=== PATIENT | male | born 1965 | race Caucasian/White ===

== ENCOUNTER 2018-01-01 16:36 | Emergency (ER) | payer OTHER ==
[~2018-01-01] VITALS: Ht 165.1 cm; Wt 56.7 kg
[~2018-01-01 16:36] MED LIST: ACETAMINOPHEN-1 EAC1 PO; IBUPROFEN 600600 M1 PO; NOHOMEMEDICATIONS; PAROEX473 ML MM; PENICILLIN VK250 MG PO; PENICILLIN VK500 MG PO; VICODIN 5-3001 EACH PO
[2018-01-01 18:43] VITALS: BP 139/83
== END 2018-01-01 18:45 | disposition home or self-care (01) ==
LOC: M.ERS 16:36
DX: S01.81XA Laceration without foreign body of other part of head, initial encounter (principal); S09.90XA Unspecified injury of head, initial encounter; F17.210 Nicotine dependence, cigarettes, uncomplicated; W22.01XA Walked into wall, initial encounter; Y93.89 Activity, other specified; Y92.89 Other specified places as the place of occurrence of the external cause; Y99.8 Other external cause status

== ENCOUNTER 2018-04-21 14:02 | Emergency (ER) | payer OTHER ==
[~2018-04-21] VITALS: Ht 162.6 cm; Wt 56.7 kg
[2018-04-21 15:09] LABS: ABSOLUTE BASOPHILS 0.1 thou/uL (0.0-0.2); ABSOLUTE EOSINOPHILS 0.1 thou/uL (0.0-0.7); ABSOLUTE LYMPHOCYTES 2.1 thou/uL (0.8-5.3); ABSOLUTE MONOCYTES 0.9 thou/uL (0.0-1.2); ABSOLUTE NEUTROPHILS 6.5 thou/uL (1.6-8.1); BASOPHILS 0.7 %; EOSINOPHILS 0.6 %; HEMATOCRIT 44.5 % (42.0-52.0); HEMOGLOBIN 15.5 gm/dL (14.0-18.0); LYMPHOCYTES 22.2 %; MCH 34.4 pg (26.0-34.0); MCHC 34.9 g/dL (28.0-37.0); MCV 98.5 fL (80.0-100.0); MONOCYTES 8.8 %; MPV 7.9 fl. (7.2-11.1); NUCLEATED RBCS 0 /100WBC; PLATELET COUNT* 227 thou/uL (150-400); POLYS 67.7 %; RBC 4.51 mil/uL (4.50-6.00); RDW-CV 12.6 % (10.5-14.5); WBC 9.6 thou/uL (4.0-11.0)
[2018-04-21 15:23] LABS: ANION GAP 11 mmol/L (7-16); BUN 7 mg/dL (7-18); CALCIUM 9.1 mg/dL (8.5-10.1); CHLORIDE 100 mmol/L (98-107); CO2 25 mmol/L (21-32); CREATININE 0.8 mg/dL (0.6-1.3); GLUCOSE 127 mg/dL (70-99); POTASSIUM 3.9 mmol/L (3.5-5.1); SODIUM 136 mmol/L (136-145)
[2018-04-21 15:27] LABS: ALBUMIN 3.8 g/dL (3.4-5.0); ALKALINE PHOSPHATASE 112 U/L (46-116); SGOT 56 U/L (15-37); SGPT 51 U/L (30-65); TOTAL BILIRUBIN 0.4 mg/dL (<0.1-1.0); TOTAL PROTEIN 8.2 g/dL (6.4-8.2); TROPONIN-I LEVEL <0.06 ng/mL (<0.06)
[2018-04-21] MEDS ORDERED: AMOXICILLIN 50500 MG PO (15:48)
[2018-04-21 16:03] VITALS: BP 131/90
== END 2018-04-21 16:04 | disposition left against medical advice (07) ==
LOC: M.ERS 14:02
PROVIDERS: Physician Assistant
DX: S02.40CA Maxillary fracture, right side, initial encounter for closed fracture (principal); R56.9 Unspecified convulsions; K04.7 Periapical abscess without sinus; F10.10 Alcohol abuse, uncomplicated; Y90.7 Blood alcohol level of 200-239 mg/100 ml; F17.210 Nicotine dependence, cigarettes, uncomplicated; W18.39XA Other fall on same level, initial encounter; Y93.89 Activity, other specified; Y92.89 Other specified places as the place of occurrence of the external cause; Y99.8 Other external cause status

== ENCOUNTER 2019-03-20 09:38 | Emergency (ER) | payer OTHER ==
[~2019-03-20] VITALS: Ht 165.1 cm; Wt 56.7 kg
[~2019-03-20 09:38] MED LIST changes: +AMOXICILLIN 50500 MG PO
[2019-03-20 09:52] VITALS: BP 154/99
[2019-03-20] MEDS ORDERED: KEPPRA 500 MG500 M1 PO (09:54)
[2019-03-20] MEDS ORDERED: TYLENOL WITH CO1 TA1 PO (10:28)
== END 2019-03-20 10:35 | disposition home or self-care (01) ==
LOC: M.ERS 09:38
DX: S46.211A Strain of muscle, fascia and tendon of other parts of biceps, right arm, initial encounter (principal); F17.210 Nicotine dependence, cigarettes, uncomplicated; X58.XXXA Exposure to other specified factors, initial encounter; Y93.89 Activity, other specified; Y92.89 Other specified places as the place of occurrence of the external cause; Y99.8 Other external cause status